=== PATIENT | female | born 1970 | race Caucasian/White ===

== ENCOUNTER 2017-09-22 10:35 | Day surgery (SDC) | payer BC ==
[2017-09-22 10:58] VITALS: BMI 25.7
[2017-09-22] MEDS ORDERED: PROPOFOL 20 ML ONE ×2 (11:39)
[2017-09-22 13:06] VITALS: TEMP 97.8
[2017-09-22 13:32] VITALS: BP 119/86; PULSE 65
--- NOTE | 2017-09-24 10:41 | PATH ---
Surgical Pathology Report Patient Name: TYRONE GUEVARA [facility]. Rec. #: [id number] /Age/Gender: 1970 (Age: 47) / F Account: [id number] Location: [facility], [facility]-ENDOSCOPY Taken: 09/22/2017 Received: 09/22/2017 Reported: 09/24/2017 Physicians: Emeka Soliman M.D. Specimen(s) Received A: BX DUODENUM B: BX ANTRUM C: DISTAL ESOPHAGHUS D: PROXIMAL SIGMOID Clinical History GI bleed Postoperative diagnosis: Mild gastritis, rule out Carrillo's esophagus, polyp Final Diagnosis A. DUODENUM, BIOPSY: DUODENAL MUCOSA WITHOUT SIGNIFICANT PATHOLOGIC FINDINGS. B. STOMACH, ANTRUM, BIOPSY: GASTRIC ANTRAL MUCOSA WITH MINIMAL CHRONIC INFLAMMATION. IMMUNOHISTOCHEMICAL STAIN FOR H. PYLORI IS NEGATIVE. C. DISTAL ESOPHAGUS, BIOPSY: SQUAMOCOLUMNAR MUCOSA WITH MILD CHRONIC INFLAMMATION AND CHANGES OF MODERATE REFLUX ESOPHAGITIS. NO INTESTINAL METAPLASIA OR DYSPLASIA IDENTIFIED. D. PROXIMAL SIGMOID COLON, BIOPSY: SCATTERED DEGENERATED EPITHELIAL CELLS ADMIXED WITH MUCOID MATERIAL AND DEBRIS. SEE COMMENT. Comment: Deeper levels examined. Findings are insufficient for definitive diagnosis. Suggest clinical and endoscopic correlation. Electronically Signed Phyllis Hollis M.D. Gross Description A. Received in formalin, labeled "duodenum" are 2 recio, irregular portions of soft tissue averaging 0.4 cm. in greatest dimension. The specimens are submitted in toto in one cassette. B. Received in formalin, labeled "antrum" are 2 recio, irregular portions of soft tissue measuring 0.3 and 0.4 cm. in greatest dimension. The specimens are submitted in toto in one cassette. C. Received in formalin, labeled "distal esophagus" are 2 recio, irregular portions of soft tissue measuring 0.3 and 0.5 cm. in greatest dimension. The specimens are submitted in toto in one cassette. D. Received in formalin, labeled "proximal sigmoid" is a recio, irregular portion of soft tissue measuring 0.7 cm. in greatest dimension. The specimen is submitted in toto in one cassette. 09/22/2017 saudi09/22/2017
== END 2017-09-22 13:45 | disposition home or self-care (01) ==
LOC: FASU-ENDO 10:35
PROVIDERS: ATTEND Internal Medicine Gastroenterology
PROC: 0DB48ZX Excision of Esophagogastric Junction, Via Natural or Artificial Opening Endoscopic, Diagnostic (ICD-10-PCS; 2017-09-22)
PROC: 0DBN8ZX Excision of Sigmoid Colon, Via Natural or Artificial Opening Endoscopic, Diagnostic (ICD-10-PCS; principal; 2017-09-22 12:31)
PROC: 0DB98ZX Excision of Duodenum, Via Natural or Artificial Opening Endoscopic, Diagnostic (ICD-10-PCS; 2017-09-22 12:31)
PROC: 0DB68ZX Excision of Stomach, Via Natural or Artificial Opening Endoscopic, Diagnostic (ICD-10-PCS; 2017-09-22 12:31)
DX: K92.1 Melena (principal); D12.5 Benign neoplasm of sigmoid colon; K21.0 Gastro-esophageal reflux disease with esophagitis; K31.89 Other diseases of stomach and duodenum
CPT/HCPCS: 84703; 88305-TC; 88342-TC

== ENCOUNTER 2018-09-21 20:05 | Emergency (ER) | payer OTHER ==
[2018-09-21 20:20] VITALS: BP 120/70; PULSE 112; TEMP 98; BMI 21.9
[2018-09-21 21:00] LABS: HCG,QUALITATIVE URINE Negative
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
[2018-09-21 22:26] LABS: BASO % 0.7 % (0-2.0); EOS % 1.2 % (0-4.5); HEMATOCRIT 47.7 % (32.4-45.2); HEMOGLOBIN 16.1 GM/dl (10.7-15.3); LYMPH % 51.8 % (8-40); MCH 34.4 pg (25.7-33.7); MCHC 33.7 g/dl (32.0-36.0); MEAN CELL VOLUME 102.2 fl (80-96); MEAN PLT VOLUME 7.7 fl (7.5-11.1); MONO % 5.8 % (3.8-10.2); NEUT % 40.5 % (42.8-82.8); PLATELET COUNT 392 K/MM3 (134-434); RBC 4.66 M/mm3 (3.60-5.2); RDW 13.6 % (11.6-15.6); WHITE BLOOD COUNT 6.3 K/mm3 (4.0-10.8)
[2018-09-21 22:35] LABS: INR 0.93 (0.82-1.09); PROTHROMBIN TIME (PATIENT) 10.4 SEC (10.2-13.0)
[2018-09-21 22:43] LABS: ALBUMIN 4.2 g/dl (3.4-5.0); ALK PHOS 45 U/L (45-117); ANION GAP 14 MMOL/L (8-16); BILIRUBIN,TOTAL 0.4 mg/dl (0.2-1); BLOOD UREA NITROGEN 16 mg/dl (7-18); CALCIUM 9.2 mg/dl (8.5-10); CHLORIDE 103 mmol/L (98-107); CO2 23 mmol/L (21-32); CREATININE 0.6 mg/dl (0.55-1.3); GLUCOSE,RANDOM 89 mg/dl (74-106); POTASSIUM 4.2 mmol/L (3.5-5.1); SGOT/AST 22 U/L (15-37); SGPT/ALT 19 U/L (13-61); SODIUM 140 mmol/L (136-145); TOT PROT 7.2 g/dl (6.4-8.2)
--- NOTE | 2018-09-22 11:40 | EKG ---
Test Reason : Blood Pressure : / mmHG Vent. Rate : 088 BPM Atrial Rate : 088 BPM P-R Int : 114 ms QRS Dur : 076 ms QT Int : 374 ms P-R-T Axes : 068 057 055 degrees QTc Int : 452 ms NORMAL SINUS RHYTHM POSSIBLE LEFT ATRIAL ENLARGEMENT BORDERLINE ECG WHEN COMPARED WITH ECG OF 29-JAN-2008 22:02, NO SIGNIFICANT CHANGE WAS FOUND Confirmed by Erwin Nelson MD ([id number]) on 09/22/2018 11:40:01 AM Referred By: BAILEY Confirmed By:Erwin Nelson MD
== END 2018-09-22 00:32 | disposition left against medical advice (07) ==
LOC: FER 20:05
DX: R07.89 Other chest pain (principal); R05 Cough; F41.9 Anxiety disorder, unspecified; Z87.440 Personal history of urinary (tract) infections; F17.290 Nicotine dependence, other tobacco product, uncomplicated
CPT/HCPCS: 36415; 71046-TC-FY; 80053; 81003; 82550; 84484; 84703; 85025; 85379; 85610; 87040; 93005; 99283-25

== ENCOUNTER 2018-09-28 11:27 | Emergency (ER) | payer OTHER ==
[2018-09-28 11:44] VITALS: TEMP 98; BMI 23.1
[2018-09-28 12:47] LABS: BASO % 0.3 % (0-2.0); EOS % 0.2 % (0-4.5); HEMATOCRIT 48.5 % (32.4-45.2); HEMOGLOBIN 16.2 GM/dL (10.7-15.3); LYMPH % 14.8 % (8-40); MCH 33.9 pg (25.7-33.7); MCHC 33.4 g/dl (32.0-36.0); MEAN CELL VOLUME 101.6 fl (80-96); MEAN PLT VOLUME 8.3 fl (7.5-11.1); MONO % 4.3 % (3.8-10.2); NEUT % 80.4 % (42.8-82.8); PLATELET COUNT 244 K/MM3 (134-434); RBC 4.78 M/mm3 (3.60-5.2); RDW 12.9 % (11.6-15.6); WHITE BLOOD COUNT 11.7 K/mm3 (4.0-10.0)
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
[2018-09-28] MEDS ORDERED: SODIUM CHLORIDE 1,000 ML IV STA (12:58)
[2018-09-28] MEDS ORDERED: FAMOTIDINE 20 MG/50 ML IVPB 20 MG/50 ML MG IVPB ONE ×2 (12:58→13:09)
[2018-09-28 13:33] LABS: ALBUMIN 4.1 g/dl (3.4-5.0); ALK PHOS 69 U/L (45-117); ANION GAP 5 MMOL/L (8-16); BILIRUBIN,TOTAL 1.1 mg/dL (0.2-1); BLOOD UREA NITROGEN 14 mg/dL (7-18); CALCIUM 9.5 mg/dL (8.5-10.1); CHLORIDE 106 mmol/L (98-107); CO2 28 mmol/L (21-32); CREATININE 0.9 mg/dL (0.55-1.3); GLUCOSE,RANDOM 121 mg/dL (74-106); SGOT/AST 31 U/L (15-37); SGPT/ALT 32 U/L (13-61); SODIUM 139 mmol/L (136-145); TOT PROT 7.4 g/dl (6.4-8.2)
[2018-09-28] MEDS ORDERED: LOPERAMIDE HCL 2 MG CAPSULE PO ONE (17:04)
[2018-09-28 18:31] VITALS: BP 122/84; PULSE 90
--- NOTE | 2018-09-29 12:10 | EKG ---
Test Reason : Blood Pressure : / mmHG Vent. Rate : 105 BPM Atrial Rate : 105 BPM P-R Int : 124 ms QRS Dur : 078 ms QT Int : 312 ms P-R-T Axes : 084 067 048 degrees QTc Int : 412 ms SINUS TACHYCARDIA BIATRIAL ENLARGEMENT ABNORMAL ECG WHEN COMPARED WITH ECG OF 21-SEP-2018 22:24, NO SIGNIFICANT CHANGE WAS FOUND Confirmed by MD Mills Daniel ([id number]) on 09/29/2018 12:09:47 PM Referred By: Confirmed By:Brando Mills MD
== END 2018-09-28 18:31 | disposition home or self-care (01) ==
LOC: JER 11:27
DX: R11.2 Nausea with vomiting, unspecified (principal); R19.7 Diarrhea, unspecified
CPT/HCPCS: 36415; 71275-TC; 80053; 84443; 84484; 84703; 85025; 87804; 87807; 93005; 93010; 99284-25; J7030

== ENCOUNTER 2018-10-04 13:11 | Inpatient (IN) | payer OTHER ==
[2018-10-04 13:31] VITALS: BMI 21.9
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
[2018-10-04] MEDS ORDERED: BISMUTH SUBSALICYLATE 524 MG/30 ML UD PO PRN (14:43)
[2018-10-04] MEDS ORDERED: PROCHLORPERAZINE MALEATE 5 MG TABLET PO PRN (14:43)
[2018-10-04] MEDS ORDERED: ACETAMINOPHEN 325 MG TABLET (FP) PO PRN ×2 (14:43)
[2018-10-04] MEDS ORDERED: MAGNESIUM CITRATE 300 ML BOTTLE PO PRN (14:43)
[2018-10-04] MEDS ORDERED: chlordiazePOXIDE HCL 25 MG CAPSULE PO ONE (14:43)
[2018-10-04] MEDS ORDERED: MENTHOL/PHENOL 1 EACH UD MM PRN (14:43)
[2018-10-04] MEDS ORDERED: MAGNESIUM HYDROX 2400MG/30ML ORAL SUSPENSION 30 ML CUP PO PRN (14:43)
[2018-10-04] MEDS: METHOCARBAMOL 500 MG TABLET PO PRN (15:27)
[2018-10-04 17:32] LABS: EPI CELLS 4.6 /HPF (0-5/HPF); HYALINE CASTS 48 /lpf (0-8); URINE APPEARANCE TURBID; URINE BACTERIA 6.4 /hpf (NEGATIVE); URINE BILIRUBIN 1+ (NEGATIVE); URINE COLOR DK YELLOW; URINE GLUCOSE (UA) NEGATIVE (NEGATIVE); URINE KETONE 3+ (NEGATIVE); URINE LEUK ESTERASE NEGATIVE (NEGATIVE); URINE NITRITE NEGATIVE (NEGATIVE); URINE PROTEIN 2+ (NEGATIVE); URINE RBC 9 /hpf (0-4); URINE WBC 3 /hpf (0-5)
[2018-10-04] MEDS: chlordiazePOXIDE HCL 25 MG CAPSULE PO SCH ×2 (17:43→22:33)
[2018-10-04] MEDS: IBUPROFEN 400 MG TABLET (FP) PO PRN (20:32)
[2018-10-04] MEDS: guaiFENesin 200 MG/10 ML 10 ML UNIT-DOSE CUPS PO SCH (22:33)
[2018-10-04] MEDS: THIAMINE HCL 100 MG TABLET (FP) PO SCH (22:33)
[2018-10-04] MEDS: MELATONIN 5 MG TABLETS PO PRN (22:34)
[2018-10-04] MEDS: NICOTINE POLACRILEX 2 MG GUM BUC PRN (22:37)
[2018-10-05] MEDS: LACTOBACILLUS ACIDOPHILUS 1 TABLET PO SCH ×3 (01:26→22:04)
[2018-10-05] MEDS: IBUPROFEN 400 MG TABLET (FP) PO PRN ×2 (04:04→10:25)
[2018-10-05] MEDS: NICOTINE POLACRILEX 2 MG GUM BUC PRN (04:06)
[2018-10-05] MEDS: chlordiazePOXIDE HCL 25 MG CAPSULE PO SCH ×4 (06:26→22:06)
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
[2018-10-05 10:09] LABS: ALBUMIN 4.3 g/dl (3.4-5.0); BILIRUBIN,TOTAL 1.4 mg/dL (0.2-1); CALCIUM 10.1 mg/dL (8.5-10.1); POTASSIUM 4.2 mmol/L (3.5-5.1); TOT PROT 7.4 g/dl (6.4-8.2)
[2018-10-05 10:12] LABS: HEMATOCRIT 42.9 % (32.4-45.2); HEMOGLOBIN 14.4 GM/dL (10.7-15.3); MCH 34.1 pg (25.7-33.7); MCHC 33.7 g/dl (32.0-36.0); MEAN CELL VOLUME 101.2 fl (80-96); PLATELET COUNT 201 K/MM3 (134-434); RBC 4.24 M/mm3 (3.60-5.2); WHITE BLOOD COUNT 5.8 K/mm3 (4.0-10.0)
[2018-10-05] MEDS: PRENATAL VITAMINS W/ FOLIC ACID TABLET (FP) PO SCH (10:23)
[2018-10-05] MEDS: NICOTINE 7 MG/24 HOURS TOPICAL PATCH TD SCH (10:24)
[2018-10-05] MEDS: guaiFENesin 200 MG/10 ML 10 ML UNIT-DOSE CUPS PO SCH ×2 (10:25→22:07)
[2018-10-05] MEDS ORDERED: WITCH HAZEL 50% (TUCKS) 40 PAD/JAR PAD TP PRN (10:30)
[2018-10-05] MEDS ORDERED: AMMONIUM LACTATE 12% LOTION 225 GM BOTTLE TP PRN (10:33)
--- NOTE | 2018-10-05 11:43 | PN ---
S CIWA - CIWA Score Nausea/Vomitin-No Nausea/No Vomiting Muscle Tremors: 4-Moderate,w/Arms Extend Anxiety: 3 Agitation: 4-Moderately Restless Paroxysmal Sweats: 3 Orientation: 0-Oriented Tacttile Disturbances: 0-None Auditory Disturbances: 0-None Visual Disturbances: 0-None Headache: 0-None Present CIWA-Ar Total Score: 14 BHS Progress Note (SOAP) Subjective: shakes sweats interrupted sleep body aches dry skin agitation nausea Objective: 10/05/18 11:44 Vital Signs Temperature 98.1 F 10/05/18 09:40 Pulse Rate 114 H 10/05/18 09:40 Respiratory Rate 16 10/05/18 09:40 Blood Pressure 102/73 10/05/18 09:40 O2 Sat by Pulse Oximetry (%) Laboratory Tests 10/04/18 10/04/18 10/05/18 14:00 14:00 07:00 WBC 5.8 RBC 4.24 Hgb 14.4 Hct 42.9 MCV 101.2 H MCH 34.1 H MCHC 33.7 RDW 13.0 Plt Count 201 MPV 9.0 Sodium Potassium Chloride Carbon Dioxide Anion Gap BUN Creatinine Est GFR (CKD-EPI)AfAm Est GFR (CKD-EPI)NonAf Random Glucose Calcium Total Bilirubin AST ALT Alkaline Phosphatase Total Protein Albumin Urine Color Dk yellow Urine Appearance Turbid Urine pH 6.0 Ur Specific [place] 1.035 Urine Protein 2+ H Urine Glucose (UA) Negative Urine Ketones 3+ H Urine Blood Trace Urine Nitrite Negative Urine Bilirubin 1+ H Urine Urobilinogen 1.0 Ur Leukocyte Esterase Negative Urine WBC (Auto) 3 Urine RBC (Auto) 9 Urine Casts (Auto) 48 U Pathogenic Cast Auto None U Epithel Cells (Auto) 4.6 Urine Bacteria (Auto) 6.4 POC Urine HCG, Qual Negative 10/05/18 07:00 WBC RBC Hgb Hct MCV MCH MCHC RDW Plt Count MPV Sodium 135 L Potassium 4.2 Chloride 98 Carbon Dioxide 28 Anion Gap 8 BUN 11 Creatinine 1.0 Est GFR (CKD-EPI)AfAm 76.61 Est GFR (CKD-EPI)NonAf 66.10 Random Glucose 88 Calcium 10.1 Total Bilirubin 1.4 H AST 84 H ALT 83 H Alkaline Phosphatase 72 Total Protein 7.4 Albumin 4.3 Urine Color Urine Appearance Urine pH Ur Specific [place] Urine Protein Urine Glucose (UA) Urine Ketones Urine Blood Urine Nitrite Urine Bilirubin Urine Urobilinogen Ur Leukocyte Esterase Urine WBC (Auto) Urine RBC (Auto) Urine Casts (Auto) U Pathogenic Cast Auto U Epithel Cells (Auto) Urine Bacteria (Auto) POC Urine HCG, Qual aaox3 ambulating no acute distress labs noted repeat u/a with c&s d/c tylenol Assessment: 10/05/18 11:45 withdrawal sx Plan: continue detox increase fluids lac hydrin ordered pt was reminded about anti nausea medication already ordered.
[2018-10-05] MEDS: chlordiazePOXIDE HCL 25 MG CAPSULE PO PRN (19:10)
[2018-10-05] MEDS: METHOCARBAMOL 500 MG TABLET PO PRN (19:10)
[2018-10-05] MEDS: traZODone HCL 50 MG TABLET (FP) PO SCH (22:04)
[2018-10-05] MEDS: HYDROCORTISONE 0.5% TOPICAL CREAM 30 GM TUBE TP SCH (22:04)
[2018-10-05] MEDS: THIAMINE HCL 100 MG TABLET (FP) PO SCH (22:34)
[2018-10-06] MEDS: chlordiazePOXIDE HCL 25 MG CAPSULE PO SCH ×2 (04:23→10:15)
[2018-10-06] MEDS: IBUPROFEN 400 MG TABLET (FP) PO PRN (04:24)
[2018-10-06] MEDS: NICOTINE POLACRILEX 2 MG GUM BUC PRN (04:26)
[2018-10-06] MEDS ORDERED: SIMETHICONE 80 MG TAB.CHEW (FP) PO PRN (08:55)
[2018-10-06] MEDS: guaiFENesin 200 MG/10 ML 10 ML UNIT-DOSE CUPS PO SCH ×2 (10:15→21:57)
[2018-10-06] MEDS: PRENATAL VITAMINS W/ FOLIC ACID TABLET (FP) PO SCH (10:15)
[2018-10-06] MEDS: LACTOBACILLUS ACIDOPHILUS 1 TABLET PO SCH ×2 (10:15→22:01)
[2018-10-06] MEDS: HYDROCORTISONE 0.5% TOPICAL CREAM 30 GM TUBE TP SCH ×2 (10:15→21:55)
[2018-10-06] MEDS: NICOTINE 7 MG/24 HOURS TOPICAL PATCH TD SCH (10:15)
[2018-10-06] MEDS: METHOCARBAMOL 500 MG TABLET PO PRN ×2 (10:16→18:46)
--- NOTE | 2018-10-06 11:09 | PN ---
[facility] CIWA - CIWA Score Nausea/Vomitin-No Nausea/No Vomiting Muscle Tremors: 3 Anxiety: 3 Agitation: 3 Paroxysmal Sweats: 3 Orientation: 0-Oriented Tacttile Disturbances: 0-None Auditory Disturbances: 0-None Visual Disturbances: 0-None Headache: 0-None Present CIWA-Ar Total Score: 12 S Progress Note (SOAP) Subjective: agitation sweats shakes interrupted sleep Objective: 10/06/18 11:08 Vital Signs Temperature 96.8 F L 10/06/18 09:33 Pulse Rate 93 H 10/06/18 09:33 Respiratory Rate 18 10/06/18 09:33 Blood Pressure 112/74 10/06/18 09:33 O2 Sat by Pulse Oximetry (%) Laboratory Tests 10/04/18 10/04/18 10/05/18 14:00 14:00 07:00 WBC 5.8 RBC 4.24 Hgb 14.4 Hct 42.9 MCV 101.2 H MCH 34.1 H MCHC 33.7 RDW 13.0 Plt Count 201 MPV 9.0 Sodium Potassium Chloride Carbon Dioxide Anion Gap BUN Creatinine Est GFR (CKD-EPI)AfAm Est GFR (CKD-EPI)NonAf Random Glucose Calcium Total Bilirubin AST ALT Alkaline Phosphatase Total Protein Albumin Urine Color Dk yellow Urine Appearance Turbid Urine pH 6.0 Ur Specific [place] 1.035 Urine Protein 2+ H Urine Glucose (UA) Negative Urine Ketones 3+ H Urine Blood Trace Urine Nitrite Negative Urine Bilirubin 1+ H Urine Urobilinogen 1.0 Ur Leukocyte Esterase Negative Urine WBC (Auto) 3 Urine RBC (Auto) 9 Urine Casts (Auto) 48 U Pathogenic Cast Auto None U Epithel Cells (Auto) 4.6 Urine Bacteria (Auto) 6.4 POC Urine HCG, Qual Negative RPR Titer 10/05/18 10/05/18 07:00 07:00 WBC RBC Hgb Hct MCV MCH MCHC RDW Plt Count MPV Sodium 135 L Potassium 4.2 Chloride 98 Carbon Dioxide 28 Anion Gap 8 BUN 11 Creatinine 1.0 Est GFR (CKD-EPI)AfAm 76.61 Est GFR (CKD-EPI)NonAf 66.10 Random Glucose 88 Calcium 10.1 Total Bilirubin 1.4 H AST 84 H ALT 83 H Alkaline Phosphatase 72 Total Protein 7.4 Albumin 4.3 Urine Color Urine Appearance Urine pH Ur Specific [place] Urine Protein Urine Glucose (UA) Urine Ketones Urine Blood Urine Nitrite Urine Bilirubin Urine Urobilinogen Ur Leukocyte Esterase Urine WBC (Auto) Urine RBC (Auto) Urine Casts (Auto) U Pathogenic Cast Auto U Epithel Cells (Auto) Urine Bacteria (Auto) POC Urine HCG, Qual RPR Titer Nonreactive aaox3 ambulating no acute distress Assessment: 10/06/18 11:08 withdrawal sx Plan: continue detox increase fluids
--- NOTE | 2018-10-06 12:13 | EKG ---
Test Reason : Blood Pressure : / mmHG Vent. Rate : 099 BPM Atrial Rate : 099 BPM P-R Int : 120 ms QRS Dur : 074 ms QT Int : 344 ms P-R-T Axes : 081 067 054 degrees QTc Int : 441 ms NORMAL SINUS RHYTHM POSSIBLE LEFT ATRIAL ENLARGEMENT BORDERLINE ECG WHEN COMPARED WITH ECG OF 28-SEP-2018 12:51, NO SIGNIFICANT CHANGE WAS FOUND Confirmed by MD Mercedes, Brad ([id number]) on 10/06/2018 12:13:00 PM Referred By: JORGE ZAMBRANO Confirmed By:Brad Long MD
[2018-10-06] MEDS: chlordiazePOXIDE HCL 25 MG CAPSULE PO PRN (12:39)
[2018-10-06] MEDS ORDERED: cloNIDine HCL 0.1 MG TABLET PO ONE (15:54)
--- NOTE | 2018-10-06 15:56 | PN ---
[facility] Progress Note Note: pt c/o of left side chest discomfort on inspiration; motrin 600mg prn, chest x- ray ordered and clondine 01.x one will reassess in am
[2018-10-06] MEDS: IBUPROFEN 600 MG TABLET (FP) PO PRN ×2 (16:02→21:56)
[2018-10-06] MEDS ORDERED: chlordiazePOXIDE HCL 10 MG CAPSULE PO PRN (17:00)
[2018-10-06] MEDS: chlordiazePOXIDE HCL 10 MG CAPSULE PO SCH ×2 (17:55→22:01)
[2018-10-06] MEDS: THIAMINE HCL 100 MG TABLET (FP) PO SCH (21:55)
[2018-10-06] MEDS: traZODone HCL 50 MG TABLET (FP) PO SCH (21:56)
[2018-10-06] MEDS: MELATONIN 5 MG TABLETS PO PRN (21:56)
[2018-10-06] MEDS: MAG HYDROX/AL HYDROX/SIMETH 30 ML UNIT-DOSE CUP PO PRN (22:01)
[2018-10-07] MEDS: METHOCARBAMOL 500 MG TABLET PO PRN ×3 (03:58→18:38)
[2018-10-07] MEDS: chlordiazePOXIDE HCL 10 MG CAPSULE PO SCH ×3 (05:49→17:25)
[2018-10-07] MEDS: MAG HYDROX/AL HYDROX/SIMETH 30 ML UNIT-DOSE CUP PO PRN (05:50)
[2018-10-07] MEDS: NICOTINE POLACRILEX 2 MG GUM BUC PRN ×2 (05:51→22:16)
[2018-10-07] MEDS: PRENATAL VITAMINS W/ FOLIC ACID TABLET (FP) PO SCH (10:10)
[2018-10-07] MEDS: HYDROCORTISONE 0.5% TOPICAL CREAM 30 GM TUBE TP SCH ×2 (10:11→22:15)
[2018-10-07] MEDS: NICOTINE 7 MG/24 HOURS TOPICAL PATCH TD SCH (10:11)
[2018-10-07] MEDS: LACTOBACILLUS ACIDOPHILUS 1 TABLET PO SCH (10:11)
--- NOTE | 2018-10-07 12:58 | PN ---
BHS Progress Note (SOAP) Subjective: agitation left side discomfort Objective: 10/07/18 12:57 Vital Signs Temperature 98.4 F 10/07/18 11:09 Pulse Rate 70 10/07/18 11:09 Respiratory Rate 18 10/07/18 11:09 Blood Pressure 97/58 L 10/07/18 11:09 O2 Sat by Pulse Oximetry (%) aaox3 ambulating no acute distress Assessment: 10/07/18 12:57 mild withdrawal sx Plan: continue detox pending chest x-ray ordered d/c in am
[2018-10-07] MEDS: IBUPROFEN 600 MG TABLET (FP) PO PRN (13:18)
[2018-10-07] MEDS: MELATONIN 5 MG TABLETS PO PRN (22:15)
[2018-10-07] MEDS: traZODone HCL 50 MG TABLET (FP) PO SCH (22:15)
[2018-10-07] MEDS: THIAMINE HCL 100 MG TABLET (FP) PO SCH (22:16)
[2018-10-07 23:12] VITALS: BP 100/60; PULSE 86; TEMP 98.2
[2018-10-07] MEDS ORDERED: hydrOXYzine PAMOATE 50 MG CAPSULE (FP) PO ONE (23:32)
[2018-10-08] MEDS: chlordiazePOXIDE HCL 10 MG CAPSULE PO SCH (05:38)
[2018-10-08] MEDS: NICOTINE POLACRILEX 2 MG GUM BUC PRN (05:39)
--- NOTE | 2018-10-08 10:06 | DS ---
[facility] Detox Discharge Summary Admission Date: 10/04/18 Discharge Date: 10/08/18 - History Present History: Alcohol Dependence - Physical Exam Results Vital Signs: Vital Signs Temperature 98.2 F 10/07/18 23:04 Pulse Rate 86 10/07/18 23:04 Respiratory Rate 16 10/08/18 03:30 Blood Pressure 100/60 10/07/18 23:04 O2 Sat by Pulse Oximetry (%) - Treatment Hospital Course: Detox Protocol Followed, Detoxed Safely, Responded well, Discharged Condition Good, Rehab Referral Accepted - Medication Discharge Medications: Ambulatory Orders Zolpidem Tartrate [Ambien] 10 mg PO ASDIR PRN 09/22/17 - Diagnosis (1) Alcohol dependence with uncomplicated withdrawal Status: Chronic (2) Alcohol-induced anxiety disorder Status: Acute (3) Alcohol-induced mood disorder Status: Acute (4) Alcohol-induced sleep disorder Status: Acute (5) Cannabis dependence, uncomplicated Status: Chronic (6) Cough Status: Chronic (7) Nicotine dependence Status: Chronic Qualifiers: Nicotine product type: cigarettes Substance use status: uncomplicated Qualified Code(s): F17.210 - Nicotine dependence, cigarettes, uncomplicated (8) Muscular aches Status: Acute - AMA Did Patient Leave Against Medical Advice: No (declined aftercare; going home)
== END 2018-10-08 06:30 | disposition home or self-care (01) | DRG 775 ==
LOC: YASAS 13:11 → Y6N 14:53
PROVIDERS: ADMIT Surgery; ATTEND Surgery
PROC: HZ2ZZZZ Detoxification Services for Substance Abuse Treatment (ICD-10-PCS; principal; 2018-10-04)
DX: F10.230 Alcohol dependence with withdrawal, uncomplicated (principal); F12.20 Cannabis dependence, uncomplicated; F17.210 Nicotine dependence, cigarettes, uncomplicated; F10.280 Alcohol dependence with alcohol-induced anxiety disorder; F10.24 Alcohol dependence with alcohol-induced mood disorder; F10.282 Alcohol dependence with alcohol-induced sleep disorder; F32.9 Major depressive disorder, single episode, unspecified; E86.0 Dehydration; M79.10 Myalgia, unspecified site; R05 Cough; H55.00 Unspecified nystagmus; R30.0 Dysuria; R01.1 Cardiac murmur, unspecified; T07.XXXA Unspecified multiple injuries, initial encounter; Z91.81 History of falling
CPT/HCPCS: 36415; 71046-TC-FY; 80053; 81003; 81025; 85027; 86593; 93005; 93010; J0735

== ENCOUNTER 2019-04-21 13:50 | Day surgery (SDC) | payer OTHER ==
[2019-04-20 18:49] VITALS: BMI 23.1
[2019-04-21] MEDS ORDERED: oxyCODONE HCL 5 MG TABLET PO PRN (15:02)
[2019-04-21] MEDS ORDERED: PROMETHAZINE HCL 25 MG/1 ML VIAL IVPUSH PRN (15:02)
[2019-04-21] MEDS ORDERED: ONDANSETRON 4 MG/2 ML VIAL IVPUSH PRN (15:02)
--- NOTE | 2019-04-21 15:29 | HP ---
History & Physical Update - History History: No Change (Postmenopausal bleeding) - Physical Physical: No Change - Assessment Assessment: No Change - Plan Plan: No Change (D&C, hysteroscopy)
[2019-04-21] MEDS ORDERED: PROPOFOL 20 ML ONE (15:37)
[2019-04-21] MEDS ORDERED: DEXAMETHASONE SOD PHOSPHATE 4 MG/1 ML VIAL ONE (15:55)
[2019-04-21] MEDS ORDERED: KETOROLAC TROMETHAMINE 30 MG/1 ML VIAL ONE (15:56)
--- NOTE | 2019-04-21 16:15 | OP ---
Operative Note - Note: Operative Date: 04/21/19 Pre-Operative Diagnosis: Postmenopausal bleeding Operation: Hysteroscopy, D&C Findings: 1. small AV uterus, no pelvic or adnexal masses 2. atrophic endom cavity Post-Operative Diagnosis: Same as Pre-op Surgeon: Shaun Singh Anesthesiologist/GUIDANCE CONSULTANT: Vahe Leija Anesthesia: General Specimens Removed: Endometrial curettings Estimated Blood Loss (mls): 5 Drains, Volume Out (mls): 0 Blood Volume Replaced (mls): 0 Fluid Volume Replaced (mls): 400 Operative Report Dictated: Yes
[2019-04-21] MEDS ORDERED: ACETAMINOPHEN INJECTION 100 ML IVPB ONE (16:25)
[2019-04-21] MEDS ORDERED: ACETAMINOPHEN 1000 MG/100 ML VIAL (NON FORMULARY) IVPB ONE (16:30)
[2019-04-21 18:49] VITALS: BP 120/70; PULSE 80; TEMP 98
--- NOTE | 2019-04-21 22:30 | OP ---
DATE OF OPERATION: 04/21/2019 PREOPERATIVE DIAGNOSIS: Postmenopausal bleeding. POSTOPERATIVE DIAGNOSIS: Postmenopausal bleeding. PROCEDURE: Hysteroscopy dilation and curettage. SURGEON: Cassidy Ayon M.D. ANESTHESIOLOGIST: Vahe Leija M.D. ANESTHESIA: General. COMPLICATIONS: None. ESTIMATED BLOOD LOSS: 5 mL. INTRAVENOUS FLUIDS: 400 mL. PATHOLOGY: Endometrial curettings. FINDINGS: Examination under anesthesia showed the small anteverted uterus with no pelvic or adnexal masses. The hysteroscopy showed a small atrophic endometrial cavity with no polyps, lesions, or masses. DESCRIPTION OF PROCEDURE: The patient was met preoperatively. Risks, benefits, and alternatives of surgery were discussed in detail. All questions were answered. Consent form was reviewed and discussed. The patient verbalized her understanding. The patient requested to proceed with surgery. She was brought to the OR with the IV running. The patient was placed on a surgical table in the supine position. The general anesthesia was achieved without difficulty. The patient was then placed in a dorsal lithotomy position using adjustable Emre stirrups. She was examined under anesthesia with the findings as described above. The timeout was conducted as per standard protocol. The patient was prepped and draped in the usual sterile fashion. A weighted speculum was introduced inside the vagina with good visualization of the cervix. The cervix was grasped with a single-toothed tenaculum. The endocervical canal was dilated using graduated Rosado dilators. The endoscope was placed through the endocervical canal and into the uterine cavity. The endometrial cavity appeared to be small and atrophic with no lesions or masses. Both fallopian tube ostia were visualized. The hysteroscope was then removed. A sharp endometrial curettage was performed, and the tissue was sent to pathology for evaluation. Once this was completed, all of the instruments were removed from the patient. Good hemostasis was noted. The patient was returned to supine position. She was then transferred to recovery room in stable condition and awake. CASSIDY AYON M.D. [id number]
--- NOTE | 2019-04-23 16:01 | PATH ---
Surgical Pathology Report Patient Name: TYRONE GUEVARA [facility]. Rec. #: [id number] /Age/Gender: 1970 (Age: 48) / F Account: [id number] Location: [facility] SURGICAL Taken: 04/21/2019 Received: 04/22/2019 Reported: 04/23/2019 Physicians: Shaun Singh M.D. Specimen(s) Received ENDOMETRIAL CURETTINGS Clinical History Postmenopausal bleeding Final Diagnosis ENDOMETRIAL CURETTINGS, DILATION AND CURETTAGE: SCANT FRAGMENTS OF WEAKLY PROLIFERATIVE ENDOMETRIUM, AND SCANT BENIGN CERVICAL TISSUE ADMIXED WITH MUCUS AND BLOOD. Electronically Signed Phyllis Hollis M.D. Gross Description Received in formalin labeled "endometrial curettings," is a 1.7 x 1.5 x 0.3 cm aggregate of recio-brown soft tissue fragments. The formalin is filtered and the specimen is entirely submitted in one cassette. /04/22/2019 saudi04/22/2019
== END 2019-04-21 18:40 | disposition home or self-care (01) ==
LOC: JASU-SURG 13:50
PROVIDERS: ATTEND Obstetrics & Gynecology
PROC: 0UDB7ZX Extraction of Endometrium, Via Natural or Artificial Opening, Diagnostic (ICD-10-PCS; principal; 2019-04-21 15:30)
PROC: 0UJD8ZZ Inspection of Uterus and Cervix, Via Natural or Artificial Opening Endoscopic (ICD-10-PCS; 2019-04-21 15:30)
DX: N95.0 Postmenopausal bleeding (principal)
CPT/HCPCS: 86850; 86900; 86901; 88305-TC; 94760; J0131

== ENCOUNTER 2024-04-08 15:28 | Emergency (ER) | payer BC, OTHER ==
[2024-04-08 15:44] VITALS: BP 102/60; RESP 16; TEMP 97.3; BMI 26.7
[2024-04-08 15:49] VITALS: PULSE 78
[2024-04-08] MEDS ORDERED: ACETAMINOPHEN 500 MG TABLET (FP) ONE (16:33)
[2024-04-08] MEDS ORDERED: guaiFENesin 200 MG/10 ML 10 ML UNIT-DOSE CUPS ONE (16:34)
[2024-04-08] MEDS: ACETAMINOPHEN 500 MG TABLET (FP) PO ONE (16:35)
[2024-04-08] MEDS: guaiFENesin 200 MG/10 ML 10 ML UNIT-DOSE CUPS PO ONE (16:40)
[2024-04-08] MEDS: guaiFENesin/CODEINE 10 ML UNIT-DOSE CUPS PO ONE (16:43)
[2024-04-08 18:08] LABS: THROAT:GRP A STREP NOT DETECTED (NOTDETECTED)
== END 2024-04-08 18:24 | disposition home or self-care (01) ==
LOC: FER 15:28
DX: R05.9 Cough, unspecified (principal); R09.81 Nasal congestion; R50.9 Fever, unspecified; J02.9 Acute pharyngitis, unspecified; Z20.822 Contact with and (suspected) exposure to COVID-19
CPT/HCPCS: 0241U-QW; 71046-TC-FY; 87651; 99284-25

== ENCOUNTER 2024-04-29 07:21 | Day surgery (SDC) | payer BC, OTHER ==
[2024-04-02 12:04] VITALS: BMI 28.3
[2024-04-29] MEDS ORDERED: LIDOCAINE HCL/PF 2% SDV 5ML VIAL ONE (07:29)
[2024-04-29] MEDS ORDERED: PROPOFOL 160 ML ONE (07:29)
[2024-04-29 09:24] VITALS: RESP 18; TEMP 97.5
[2024-04-29 09:37] VITALS: BP 92/40; PULSE 72
== END 2024-04-29 09:48 | disposition home or self-care (01) ==
LOC: FASU-ENDO 07:21
PROVIDERS: ATTEND Internal Medicine Gastroenterology
PROC: 0DJD8ZZ Inspection of Lower Intestinal Tract, Via Natural or Artificial Opening Endoscopic (ICD-10-PCS; principal; 2024-04-29 09:02)
DX: Z12.11 Encounter for screening for malignant neoplasm of colon (principal); Z86.0109 Personal history of other colon polyps